=== PATIENT | female | born 1980 | race Hispanic/Latino ===

== ENCOUNTER 2018-04-10 13:19 | Emergency (ER) | payer OTHER ==
[~2018-04-10] VITALS: Ht 165.1 cm; Wt 90.7 kg
[2018-04-10] MEDS ORDERED: METHYLPREDNISOLONE SOD SUCC 125 MG/2ML VIAL IM ONE (13:45)
== END 2018-04-10 14:10 | disposition home or self-care (01) ==
LOC: FSED 13:19
DX: B02.9 Zoster without complications (principal)
CPT/HCPCS: 99283; J2930